=== PATIENT | male | born 1965 | race Caucasian/White ===

== ENCOUNTER 2021-05-16 14:30 | Inpatient (IN) | payer OTHER ==
[~2021-05-16] VITALS: Ht 188 cm; Wt 107.3 kg
[2021-05-16 15:36] LABS: BASOPHILS % (AUTO) 0.4 % (0-1); EOSINOPHILS % (AUTO) 0.1 % (0-6); HEMATOCRIT 48.6 % (42.0-52.0); HEMOGLOBIN 16.5 g/dl (14.0-17.9); LYMPHOCYTES # (AUTO) 0.9 X10'3 (1.1-4.8); LYMPHOCYTES % (AUTO) 21.5 % (21-51); MEAN CORPUSCULAR HEMOGLOBIN 30.2 PG (27.0-31.0); MEAN CORPUSCULAR VOLUME 88.7 FL (78-98); MEAN PLATELET VOLUME 8.1 FL (7.4-10.4); MONOCYTES # (AUTO) 0.5 X10'3 (0-0.9); MONOCYTES % (AUTO) 13.4 % (2-12); NEUTROPHILS # (AUTO) 2.6 X10'3 (1.8-7.7); NEUTROPHILS % (AUTO) 64.6 % (42-75); PLATELET COUNT 143 X10'3 (140-440); RED BLOOD COUNT 5.48 X10'6 (4.70-6.10); RED CELL DISTRIBUTION WIDTH 12.7 % (11.5-14.5); WHITE BLOOD COUNT 4.1 X10'3 (4.5-11.0)
[2021-05-16 15:47] LABS: ALANINE AMINOTRANSFERASE 51 U/L (12-78); ALBUMIN 3.4 G/DL (3.4-5.0); ALBUMIN/GLOBULIN RATIO 0.9 (1.1-1.5); ALKALINE PHOSPHATASE 82 IU/L (46-116); ANION GAP 6 (8-16); ASPARTATE AMINO TRANSFERASE 36 U/L (10-37); BILIRUBIN,TOTAL 0.3 MG/DL (0.1-1.0); BLOOD UREA NITROGEN 12 MG/DL (7-18); BUN/CREATININE RATIO 12.6 (5.4-32.0); CALCIUM 8.8 MG/DL (8.5-10.1); CHLORIDE 103 MMOL/L (99-107); CREATININE 0.95 MG/DL (0.60-1.10); GLUCOSE 103 MG/DL (70-104); POTASSIUM 3.9 MMOL/L (3.5-5.1); SODIUM 138 MMOL/L (135-145); TOTAL CARBON DIOXIDE 28.7 MMOL/L (24-32); TOTAL PROTEIN 7.3 G/DL (6.4-8.2); eGFR 81 ML/MIN
--- NOTE | 2021-05-16 21:18 | NUR ---
pt states he had a syncopal episode in the lobby, bp 80/58, 92/62. pt denies any medical hx, states he only takes viagra
[2021-05-16] MEDS ORDERED: normal saline 1000ml 1,000 ML IV ONE (21:35)
[2021-05-17] MEDS ORDERED: magnesium 2GM in 50ml NS 50 ML IV PRN (00:35)
[2021-05-17] MEDS ORDERED: acetaminophen 325mg tablet PO PRN ×2 (00:35)
[2021-05-17] MEDS ORDERED: magnesium Cl slow-release 64mg tablet PO PRN (00:35)
[2021-05-17] MEDS ORDERED: potassium Cl 20 mEq SR tablet PO PRN ×2 (00:35)
[2021-05-17] MEDS ORDERED: ondansetron/PF 4mg/2ml inj IV PRN (00:35)
[2021-05-17] MEDS ORDERED: PERFLUTREN PROTEIN-A MICROSPHR (Optison) 0.22 MG/ML 3ML VIAL IV PRN (00:35)
[2021-05-17] MEDS ORDERED: magnesium hydroxide 30ml (MOM) UD suspension PO PRN (00:35)
[2021-05-17] MEDS ORDERED: magnesium 4gm in 100ml NS 100 ML IV PRN (00:35)
[2021-05-17] MEDS ORDERED: potassium Cl 40MEQ/1/2NS 520ml 520 ML IV PRN ×2 (00:35)
[2021-05-17 05:07] LABS: HEMOGLOBIN A1C 5.3 % (4.5-6.2)
[2021-05-17] MEDS ORDERED: NO HOME MEDS (06:15)
[2021-05-17] MEDS ORDERED: iohexol 300mg/ml 100ml inj. ONE (07:14)
[2021-05-17] MEDS: normal saline 1000ml 1,000 ML IV SCH ×3 (10:35→20:35)
--- NOTE | 2021-05-17 12:47 | NUR ---
pt in MRI, diet has been ordered for pt
[2021-05-17] MEDS: K and/or MAG REPLACEMENT MC SCH ×2 (15:00→19:06)
[2021-05-17] MEDS: heparin, porcine 5000 units/ml vial SQ SCH ×2 (15:10→19:06)
--- NOTE | 2021-05-17 17:13 | NUR ---
DR MOYA AWARE PT IS POSITIVE FOR COVID
[2021-05-17] MEDS ORDERED: temazepam 15mg capsule PO PRN (21:00)
[2021-05-18 05:13] LABS: BASOPHILS % (AUTO) 0.3 % (0-1); EOSINOPHILS % (AUTO) 0.2 % (0-6); HEMATOCRIT 46.8 % (42.0-52.0); LYMPHOCYTES % (AUTO) 21.2 % (21-51); MEAN CORPUSCULAR HEMOGLOBIN 30.4 PG (27.0-31.0); MEAN CORPUSCULAR HGB CONC 34.1 g/dL (33.0-36.5); MEAN CORPUSCULAR VOLUME 88.9 FL (78-98); MEAN PLATELET VOLUME 8.7 FL (7.4-10.4); MONOCYTES # (AUTO) 0.5 X10'3 (0-0.9); NEUTROPHILS # (AUTO) 3.3 X10'3 (1.8-7.7); NEUTROPHILS % (AUTO) 68.3 % (42-75); PLATELET COUNT 158 X10'3 (140-440); RED BLOOD COUNT 5.26 X10'6 (4.70-6.10); RED CELL DISTRIBUTION WIDTH 12.8 % (11.5-14.5); WHITE BLOOD COUNT 4.8 X10'3 (4.5-11.0)
[2021-05-18 05:24] LABS: ALANINE AMINOTRANSFERASE 57 U/L (12-78); ALBUMIN/GLOBULIN RATIO 0.8 (1.1-1.5); ALKALINE PHOSPHATASE 78 IU/L (46-116); ANION GAP 11 (8-16); ASPARTATE AMINO TRANSFERASE 38 U/L (10-37); BILIRUBIN,TOTAL 0.5 MG/DL (0.1-1.0); BLOOD UREA NITROGEN 14 MG/DL (7-18); BUN/CREATININE RATIO 18.4 (5.4-32.0); CALCIUM 8.4 MG/DL (8.5-10.1); CHLORIDE 105 MMOL/L (99-107); CHOL/HDL RATIO 5.3 (0.00-4.99); CHOLESTEROL 192 MG/DL (0-200); CREATININE 0.76 MG/DL (0.60-1.10); GLUCOSE 91 MG/DL (70-104); HDL CHOLESTEROL 36 MG/DL (35-60); LDL CHOLESTEROL 145 MG/DL (50-100); MAGNESIUM 2.3 MG/DL (1.5-2.4); POTASSIUM 4.1 MMOL/L (3.5-5.1); SODIUM 140 MMOL/L (135-145); TOTAL CARBON DIOXIDE 24.4 MMOL/L (24-32); TOTAL PROTEIN 6.9 G/DL (6.4-8.2); TRIGLYCERIDES 70 MG/DL (20-135); eGFR > 90 ML/MIN
[2021-05-18] MEDS: K and/or MAG REPLACEMENT MC SCH (10:00)
[2021-05-18] MEDS: normal saline 1000ml 1,000 ML IV SCH (10:45)
[2021-05-18] MEDS: heparin, porcine 5000 units/ml vial SQ SCH (12:14)
[2021-05-18] MEDS ORDERED: DEC4T PO (12:18)
[2021-05-18 13:58] VITALS: BP 119/44
== END 2021-05-18 14:00 | disposition home or self-care (01) | DRG 312 ==
LOC: ER 14:30 → UNDOADMIN 05-17 00:39 → ED HOLD 05-17 00:39
PROVIDERS: ADMIT Internal Medicine; ATTEND Family Medicine
PROC: BW241ZZ Computerized Tomography (CT Scan) of Chest and Abdomen using Low Osmolar Contrast (ICD-10-PCS; principal; 2021-05-17)
DX: R55 Syncope and collapse (principal); U07.1 COVID-19; N52.9 Male erectile dysfunction, unspecified; Z83.3 Family history of diabetes mellitus; Z72.89 Other problems related to lifestyle
CPT/HCPCS: 36415; 70450; 70551; 71045; 71260; 80053; 80061; 83036; 83735; 83880; 84145; 84484; 85025; 85379; 87635; 93005; 93306; 93880; 99285; G0378; J1644; J7030; Q9967